=== PATIENT | female | born 1995 | race Caucasian/White ===

== ENCOUNTER 2017-09-17 05:56 | Outpatient (CLI) | payer OTHER ==
[~2017-09-17] VITALS: Ht 170.2 cm; Wt 100.5 kg
[2017-09-17 06:13] VITALS: BP 142/81; PULSE 98; TEMP 97.8
[2017-09-17] MEDS ORDERED: PRENATAL1 TA7 PO (06:19)
[2017-09-17 07:06] VITALS: BP 112/66; PULSE 77
== END 2017-09-17 07:12 | disposition home or self-care (01) ==
LOC: LDRO 05:56
DX: Z34.03 Encounter for supervision of normal first pregnancy, third trimester (principal); Z3A.40 40 weeks gestation of pregnancy

== ENCOUNTER 2017-09-18 01:35 | Inpatient (IN) | payer OTHER ==
[~2017-09-18] VITALS: Ht 170.2 cm; Wt 101.4 kg
[2017-09-18] VITALS (35 sets, daily range): BP systolic 108–142; BP diastolic 65–771; PULSE 74–122; TEMP 97.8–98.8
[~2017-09-18 01:35] MED LIST: PRENATAL1 TA7 PO
[2017-09-18 06:31] LABS: BASO # 0.1 (0.0-0.2); BASO % 0.3 % (0.0-2.0); EOS % 0.2 % (0-4.0); GRAN # 16.2 (1.4-6.5); GRAN % 83.1 % (42.2-75.2); HEMATOCRIT 34.3 % (37.0-47.0); HEMOGLOBIN 11.3 g/dl (12.5-16.0); LYMPH # 1.8 (1.2-3.4); LYMPH % 9.3 % (20.0-51.0); MEAN CELL VOLUME 87 fl (80.0-100.0); MEAN CORPUSCULAR HEMOGLOBIN 29 pg (27.0-31.0); MEAN CORPUSCULAR HGB CONC 33 g/dl (33.0-37.0); MEAN PLATELET VOLUME 10.1 fl (7.4-10.4); MONO # 1.1 (0.1-0.6); MONO % 5.8 % (1.7-9.3); PLATELET COUNT 323 K/mm3 (130-400); RED BLOOD COUNT 3.94 M/mm3 (4.10-5.30)
[2017-09-19 01:10] VITALS: BP 130/68; PULSE 88; TEMP 98
[2017-09-19 06:30] VITALS: BP 136/86; PULSE 86; TEMP 98.2
[2017-09-19] MEDS ORDERED: IBU800 M1 PO (10:36)
[2017-09-19] MEDS ORDERED: PERCOCET 325 MG1 TA2 PO (10:36)
[2017-09-19 15:00] VITALS: BP 135/77; PULSE 69; TEMP 97.7
[2017-09-19 20:20] VITALS: BP 131/71; PULSE 75; TEMP 97.9
[2017-09-20 08:05] VITALS: BP 131/84; PULSE 80; TEMP 98.1
== END 2017-09-20 13:15 | disposition home or self-care (01) | DRG 775 ==
LOC: LDRO 01:35 → LDR 03:25 → OB 03:25
PROVIDERS: Obstetrics & Gynecology
PROC: 10D07Z6 Extraction of Products of Conception, Vacuum, Via Natural or Artificial Opening (ICD-10-PCS; principal; 2017-09-18)
PROC: 0KQM0ZZ Repair Perineum Muscle, Open Approach (ICD-10-PCS; 2017-09-18)
DX: O75.81 Maternal exhaustion complicating labor and delivery (principal); Z3A.40 40 weeks gestation of pregnancy; Z37.0 Single live birth; O70.1 Second degree perineal laceration during delivery; Z22.330 Carrier of Group B streptococcus
CPT/HCPCS: J1200; J2540; J2590; J2795; J7120

== ENCOUNTER 2019-04-25 03:17 | Inpatient (IN) | payer OTHER ==
[~2019-04-25] VITALS: Ht 170.2 cm; Wt 91.8 kg
[2019-04-25] VITALS (31 sets, daily range): BP systolic 93–163; BP diastolic 51–93; PULSE 58–115; TEMP 97.3–98.4
[~2019-04-25 03:17] MED LIST changes: +IBU800 M1 PO; +PERCOCET 325 MG1 TA2 PO
--- NOTE | 2019-04-25 03:25 | NUR ---
Ambulatory to unit for labor assessment, accompanied by spouse. Oriented to room, monitor, plan of care. Pt reports irregular contractions x 3 days, states "they seem to be getting stronger and more often."
[2019-04-25 06:04] LABS: BASO % 0.4 % (0.0-2.0); EOS # 0.1 (0.0-0.7); EOS % 0.6 % (0-4.0); GRAN % 63.1 % (42.2-75.2); LYMPH # 2.2 (1.2-3.4); MEAN CELL VOLUME 84 fl (80.0-100.0); MEAN CORPUSCULAR HEMOGLOBIN 27 pg (27.0-31.0); MEAN CORPUSCULAR HGB CONC 32 g/dl (33.0-37.0); MEAN PLATELET VOLUME 9.9 fl (7.4-10.4); MONO # 0.6 (0.1-0.6); MONO % 7.1 % (1.7-9.3); PLATELET COUNT 275 K/mm3 (130-400); RED BLOOD COUNT 4.13 M/mm3 (4.10-5.30); REDCELL DISTRIBUTION WIDTH-CV 14.6 % (11.5-14.5)
[2019-04-25 06:08] LABS: HEMATOCRIT 34.6 % (37.0-47.0)
--- NOTE | 2019-04-25 07:15 | NUR ---
Discussed pitocin start vs waiting for physician to break water with pt. Pt ok with pitocin and AROM, wishes to wait to start pitocin until returns from getting breakfast.
--- NOTE | 2019-04-25 09:01 | NUR ---
0823 - Pitocin started at 2mu/ml per protocol per physician orders. 0849 - Dr. Trujillo at pt bedside. AROM at 0851, SVE per provider . Plan to continue pitocin per protocol.
--- NOTE | 2019-04-25 10:05 | NUR ---
0916 - Terry Martin CRNA to bedside. Pt positioned sitting upright on side of bed. Test dose given at 0926, pt tolerated well. Pt repositioned to LL in bed. Denies needs at this time. 0947 - Dr. Trujillo to bedside. SVE 7-/-1. Following cervical check, FHT decreased into 60s-80s with occasional increases to 140s over 4 minutes. Physician and RN remained at bedside. Pitocin stopped at 0950. Pt repositioned to at 0951. FHT returned to baseline of 115 at 0952. 0953 - SVE per Dr. Trujillo unchanged. Orders to continue monitoring pt, recheck at 1030. If pt unchanged and FHT stable, restart Pitocin at 2mu/ml.
--- NOTE | 2019-04-25 10:35 | NUR ---
SVE 7-8/80/-1, unchanged from last check. Per Dr. Trujillo, pitocin restarted at 2mu/ml/hr. Dr. Trujillo notified, see physician notification.
[2019-04-25 10:49] LABS: TRICYCLIC ANTIDEPRESS URINE NEGATIVE
--- NOTE | 2019-04-25 11:10 | NUR ---
Pt informed of positive drug screen for barbiturates. Pt denies any use of medication or substance that would cause positive screen. Pt does state that she took the herbal supplement Dr. Flores's Prep a few days ago.
--- NOTE | 2019-04-25 11:42 | NUR ---
SVE /1. See physician notification.
--- NOTE | 2019-04-25 13:40 | NUR ---
1233 - SVE 0. Dr. Trujillo notified. Tonie Choi RN of nursery notified. 1237 - Dr. Trujillo to pt bedside. Pt complete and ready to push per physician. Pt and bed prepped for delivery. Tonie Choi RN of nursery to pt bedside. 1241 - Pt starts pushing with contractions with Dr. Trujillo. 1258 - Viable male infant delivered spontaneously and placed on mother's abdomen, apgars 8/9/9. Care of infant transferred to Tonie Choi RN of nursery. Placenta delivered spontaneously by Dr. Trujillo at 1302. First degree repair performed by Dr. Trujillo. See physician notes. 1315 - Pericare provided. Ice pack placed on perineum. Pt repositioned for comfort.
--- NOTE | 2019-04-25 15:10 | NUR ---
Pt up to side of bed, then to standing without dizziness or complaint. Pt ambulated steadily to bathroom without difficulty. In bathroom, pt turned to pivot to toilet and "knee gave out". Pt was assisted to floor by this RN. Pt then able to stand and sit on toilet without difficulty. Pt denies pain, pt did not hit wall or floor other than to sit per this RN. Pt denies needs at this time. On toilet, pt voided 500ml, clean gown provided, clean panties and pad placed. Pt then assisted into wheelchair. Vitals taken. Pt again denies pain or injury. Pt taken by wheelchair while holding infant to room. Pt then assisted into bed without difficulty. Pt given insturction to call for help when needing to use restroom. Call light within reach, phone and water at side.
[2019-04-26] VITALS: BP 105/55; PULSE 60; TEMP 98.1
[2019-04-26 05:10] VITALS: BP 117/64; PULSE 65; TEMP 97.7
[2019-04-26 07:45] VITALS: BP 125/76; PULSE 66; TEMP 97.2
[2019-04-26] MEDS ORDERED: IBU600 MG PO (09:25)
--- NOTE | 2019-04-26 10:04 | NUR ---
Initial visit; Patient thanked [employer] for offering congratulations and God's blessings for the of her son. [employer] thanked Mom for choosing our hospital.
[2019-04-26 13:00] VITALS: BP 118/76; PULSE 76; TEMP 97.8
[2019-04-26 17:00] VITALS: BP 117/65; PULSE 64; TEMP 98.1
[2019-04-26 20:30] VITALS: BP 130/75; PULSE 73; TEMP 97.8
--- NOTE | 2019-04-27 08:00 | NUR ---
Rests in bed, alert. States wanting to take a shower.
[2019-04-27 08:45] VITALS: BP 138/71; PULSE 98; TEMP 98
--- NOTE | 2019-04-27 08:52 | NUR ---
(late entry 04/26) SHAHRIAR kessler responded to a social work job titles consult for the patient due to a positive UDS for barbiturates. The patient's nurse reports the patient took motrin but the the patient did not take anything else. SHAHRIAR kessler met with the patient. The patient reports she does not know what could have cause it, she took some motrin. The patient has all the baby supplies she needs. The patient lives with her and her son, a toddler. The patient's baby was full term at 40 weeks and 4 days. A CPS report was filed. Report # [id number]. SHAHRIAR kessler collaborated the above information with the patient's nurse.
--- NOTE | 2019-04-27 10:48 | NUR ---
States having cramping. Ibuprofen 600 mg given as ordered.
--- NOTE | 2019-04-27 13:00 | NUR ---
Rests in bed, alert. Discharge instructions given, verbalizes understanding.
[2019-04-28 14:21] LABS: .UR PHENOBARBITAL CONFIRMATION <200 ng/mL (<=200); BUTALBITOL CONFIRMATION <200 ng/mL (<=200); UR PENTOBARB-AMOBARB CONFIRM <200 ng/mL (<=200); UR SECOBARBITAL CONFIRMATION <200 ng/mL (<=200)
== END 2019-04-27 13:05 | disposition home or self-care (01) | DRG 807 ==
LOC: LDRO 03:17 → LDR 03:35 → LDRO 05:00 → OB 05:18 → LDR 05:18 → OB 15:33
PROVIDERS: Obstetrics & Gynecology; ADMIT Obstetrics & Gynecology
PROC: 10E0XZZ Delivery of Products of Conception, External Approach (ICD-10-PCS; principal; 2019-04-25)
PROC: 10907ZC Drainage of Amniotic Fluid, Therapeutic from Products of Conception, Via Natural or Artificial Opening (ICD-10-PCS; 2019-04-25)
PROC: 0HQ9XZZ Repair Perineum Skin, External Approach (ICD-10-PCS; 2019-04-25)
DX: O99.824 Streptococcus B carrier state complicating childbirth (principal); Z37.0 Single live birth; Z3A.40 40 weeks gestation of pregnancy; O70.0 First degree perineal laceration during delivery
CPT/HCPCS: J2540; J2590; J2795; J7120

== ENCOUNTER 2021-05-02 06:27 | Inpatient (IN) | payer SELFPAY ==
[2021-05-02] VITALS (9 sets, daily range): BP systolic 113–128; BP diastolic 62–84; PULSE 56–84; TEMP 97.2–98.2
[~2021-05-02] VITALS: Ht 170.2 cm; Wt 98.2 kg
--- NOTE | 2021-05-02 06:20 | NUR ---
Received a call from ED admissions that a pt had arrived after delivering baby in the car. OB staff to ED entrance. Mom found in front seat of vehicle with viable male in her arms with cord still attached and placenta not delivered. Assisted mom to wheelchair. [place] covered with warm blankets. Pt taken to LR 4. Assisted pt to the bed. Cord clamped and cut. Care of the given to nursery RN at the bedside.
[~2021-05-02 06:27] MED LIST changes: +IBU600 MG PO
--- NOTE | 2021-05-02 07:00 | NUR ---
0[address] Rn at bedside. Dr. Jeff arrives on unit. Pt repositioned into foot plates. 0653 Spontaneous delivery of placenta. fundal massage done. firm and midline. scant amount of bleeding noted. this RN will continue to monitor. Plan of care discussed with patient. Patient verbalizes understanding.
[2021-05-02 08:36] LABS: BASO % 0.1 % (0.0-2.0); GRAN # 13.2 K/mm3 (1.4-6.5); GRAN % 89.5 % (42.2-75.2); HEMATOCRIT 37.7 % (37.0-47.0); LYMPH # 1.1 K/mm3 (1.2-3.4); LYMPH % 7.3 % (20.0-51.0); MEAN CELL VOLUME 81 fl (80.0-100.0); MEAN CORPUSCULAR HEMOGLOBIN 26 pg (27-31); MEAN CORPUSCULAR HGB CONC 32 g/dl (33.0-37.0); MEAN PLATELET VOLUME 9.5 fl (7.4-10.4); MONO # 0.3 K/mm3 (0.1-0.6); MONO % 1.8 % (1.7-9.3); PLATELET COUNT 291 K/mm3 (130-400); RED BLOOD COUNT 4.66 M/mm3 (4.10-5.30); REDCELL DISTRIBUTION WIDTH-CV 15.6 % (11.5-14.5)
--- NOTE | 2021-05-02 11:40 | NUR ---
THIS RN IN PATIENT'S ROOM. PATIENTS ASKS TO NOT HAVE ANY STAFF IN ROOM UNTIL 1400 VITALS.
--- NOTE | 2021-05-02 18:01 | NUR ---
1800 VITALS REFUSED AND WAS ASKED TO LEAVE ROOM BY MOTHER OF PATIENT
[2021-05-03] VITALS: BP 117/74; PULSE 66; TEMP 98.4
--- NOTE | 2021-05-03 07:30 | NUR ---
Ambulates to the nursery while baby is getting labs done.
[2021-05-03 09:00] VITALS: BP 126/83; PULSE 87; TEMP 97.6
== END 2021-05-03 12:45 | disposition home or self-care (01) | DRG 807 ==
LOC: LDR 06:27 → OB 09:00
PROVIDERS: ADMIT Obstetrics & Gynecology
PROC: 10E0XZZ Delivery of Products of Conception, External Approach (ICD-10-PCS; principal; 2021-05-02)
DX: Z39.0 Encounter for care and examination of mother immediately after delivery (principal); Z37.0 Single live birth; Z3A.39 39 weeks gestation of pregnancy